=== PATIENT | female | born 1950 | race Asian ===

== ENCOUNTER → 2016-04-03 | Outpatient (CLI) | payer OTHER, MEDICARE ==
[2016-04-03 15:02] VITALS: BP 156/76; PULSE 47; RESP 16; TEMP 98.2; BMI 20.9
[2016-04-03 16:45] LABS: CH 31.8; CHCM 35.2; HCT 40.7 % (34.0-46.0); HDW 2.93; HGB 14.1 gm/dL (11.4-16.0); MCH 31.6 pg (25.0-35.0); MCHC 34.8 g/dL (31.0-37.0); Mean Platelet Volume 7.3; RBC 4.47 m/uL (3.80-5.40); RDW 13.2 % (11.5-15.5); WBC 3.7 k/uL (3.8-10.6)
[2016-04-03 16:55] LABS: Partial Thromboplastin Time 24.5 sec (22.0-30.0); Prothrombin Time 10.2 sec (9.0-12.0)
[2016-04-03 17:10] LABS: ALT 46 U/L (9-52); AST 32 U/L (14-36); Alkaline Phosphatase 57 U/L (38-126); Anion Gap 9 mmol/L; Blood Urea Nitrogen 16 mg/dL (7-17); Calcium 9.5 mg/dL (8.4-10.2); Carbon Dioxide 30 mmol/L (22-30); Chloride 104 mmol/L (98-107); Cholesterol 201 mg/dL (<200); Glucose 89 mg/dL (74-99); HDL Cholesterol 100 mg/dL (40-60); Iron 105 ug/dL (37-170); Magnesium 2.1 mg/dL (1.6-2.3); Non-African American GFR(MDRD) >60 (>60 ml/min/1.73 sqM); Potassium 4.2 mmol/L (3.5-5.1); Sodium 143 mmol/L (137-145); Total Protein 7.7 g/dL (6.3-8.2); Triglycerides 59 mg/dL (<150)
[2016-04-03 17:21] LABS: % Iron Saturation 31.1 % (20-50); Prealbumin 28 mg/dL (18-36); Total Iron Binding Capacity 338 ug/dL (265-497)
[2016-04-03 18:09] LABS: Hemoglobin A1C 4.5 % (4.2-6.1)
[2016-04-03 18:16] LABS: Vitamin B12 810 pg/mL (239-931)
[2016-04-05 18:53] LABS: Selenium 180 mcg/L (63-160)
--- NOTE | 2016-04-05 21:41 | CONS ---
DATE OF CONSULTATION: 04/03/2016 CHIEF COMPLAINT: Followup sleeve gastrectomy. HISTORY OF PRESENT ILLNESS: Elaine Mukherjee is a 65-year-old female who is actually status post sleeve gastrectomy in May 2012. She is almost 4 years out. Her highest weight was 187.2 pounds. At her height of 5 feet, her ideal body weight is 127 pounds. Her body mass index was 36.6. Today she comes in weighing 107 pounds. She has lost 80 pounds. Percent excess weight loss is 134%. Body mass index has been reduced to 20.9. Total BMI point reduction is 15.7. Separately she reports having cancer of the right breast. She had chemoradiation which resulted in decreased size and asymmetry of her breasts. She is also looking for breast reconstruction. Now she presents for further evaluation and management. She denies any gastroesophageal reflux disease or epigastric abdominal pain. PAST MEDICAL HISTORY: 1. Gastroesophageal reflux disease. 2. Asthma. 3. Hypertension. 4. Carpal tunnel syndrome. 5. Dyslipidemia now resolved. 6. Osteopenia. 7. Restless leg syndrome. 8. Obstructive sleep apnea, now resolved. 9. History of head injury. 10. Obesity, now resolved. 11. Depression. 12. Cardiomyopathy, now resolved. 13. Anxiety. 14. Breast cancer. PAST SURGICAL HISTORY: 1. Bilateral carpal tunnel release. 2. Tonsillectomy. 3. Flexor tendon repair. 4. Sleep apnea. 5. Bilateral cataract extraction. 6. Upper endoscopy. 7. Laparoscopic sleeve gastrectomy. 8. Right breast partial mastectomy. 9. Chemoradiation for right breast. MEDICATIONS: 1. Klonopin. 2. Os-Abdirashid. 3. Anastrozole. 4. Albuterol. 5. Aricept. 6. Symbicort. 7. Multivitamin. 8. Singulair. 9. Cozaar. 10. Norvasc. REVIEW OF SYSTEMS: CONSTITUTIONAL: Percent excess weight loss of 134%. [place] body weight is 127 pounds. Highest weight of 187 pounds. Total weight loss of 80.4 pounds. Body mass index reduced from 36.6 to 20.9. Additional weight loss of 7 pounds in 2 years. BREASTS: History of breast cancer, status post chemoradiation, right breast. GASTROINTESTINAL: No reports of nausea or vomiting or gastroesophageal reflux disease. HEENT: Denies any dysphagia or troubles with hearing or vision. ENDOCRINE: Denies any thyroid disorders or diabetes. CARDIOVASCULAR: History of cardiomyopathy including decreased any use of her antihypertensive medications. RESPIRATORY: History of obstructive sleep apnea, now completely resolved. Has asthma. SKIN: Resolution of panniculitis since her weight loss. MUSCULOSKELETAL: Lower back pain including osteoarthritis, moderately improved since her weight loss. NEUROLOGIC: Denies any strokes or seizure disorders. History of head injury in the past. PSYCH: Pertinent for anxiety and depression. HEMATOLOGIC: No reports of DVTs or pulmonary embolisms. PHYSICAL EXAM: VITAL SIGNS: 98.2, 47, 16, 156/76, 5 feet, 107 pounds. Body mass index 20.9. ABDOMEN: Soft, nontender. No palpable incisional hernias. Excess redundant skin over pubis by 4 cm. Breast asymmetry noted with smaller right breast than the left breast. GENERAL: Well-developed pleasant female in no acute distress. HEENT: No scleral icterus. Extraocular movements grossly intact. Moist buccal mucosa. NECK: Supple without lymphadenopathy. CHEST: Unlabored respirations. Equal bilateral excursions. CARDIOVASCULAR: Regular rate and rhythm. NEURO: No focal or lateralizing signs. PSYCH: Appropriate affect. Alert and oriented to person, place and time. ASSESSMENT: 1. Status post sleeve gastrectomy. 2. Morbid obesity due to excess calories, now resolved. 3. Body mass index reduced from 36.6 to 20.9. 4. History of right breast cancer with undetermined stage. 5. Excess abdominal skin. 6. Obstructive sleep apnea, resolved. 7. Hypertension, resolved. 8. Dyslipidemia, resolved. 9. Osteoarthritis, resolved. PLAN: 1. Recommend bariatric metabolic panel, as she is a long-standing sleeve gastrectomy patient. 2. As she is looking into breast reconstruction and has moderate excess skin along the abdomen, she may be a candidate for soft tissue transfer for breast reconstruction. A referral to Dr. Esparza at [place] was recommended. 3. She will need optimal nutrition, especially prior to fairly extensive surgery. 4. Recommend followup in [place] in approximately 3 weeks. ADDENDUM: LABS: White count was low at 3.7. Platelets were low 149. INR is normal at 1.0. Iron was normal at 105. Cholesterol slightly elevated at 201. HDL was elevated at 100. Vitamin D was normal, including parathyroid hormone. Trace elements are still pending regarding copper and selenium. Overall nutrition is exceptional. From a bariatric standpoint, she may be cleared to pursue surgical intervention for breast reconstruction. However, she is at increased risk for bleeding, given her thrombocytopenia as well as leukopenia. [facility]
== END | disposition home or self-care (01) ==
LOC: BARWHC3 13:45
PROVIDERS: ATTEND Surgery Plastic and Reconstructive Surgery
DX: Z48.815 Encounter for surgical aftercare following surgery on the digestive system (principal); Z71.3 Dietary counseling and surveillance; E21.1 Secondary hyperparathyroidism, not elsewhere classified; E89.1 Postprocedural hypoinsulinemia; D50.8 Other iron deficiency anemias; E44.0 Moderate protein-calorie malnutrition; E55.9 Vitamin D deficiency, unspecified; K74.1 Hepatic sclerosis; N19 Unspecified kidney failure; K50.90 Crohn's disease, unspecified, without complications; Z98.84 Bariatric surgery status; Z79.899 Other long term (current) drug therapy; Z68.20 Body mass index [BMI] 20.0-20.9, adult; Z85.3 Personal history of malignant neoplasm of breast; L98.7 Excessive and redundant skin and subcutaneous tissue
CPT/HCPCS: 80053; 80061; 82306; 82525; 82607; 82728; 82746; 83036; 83540; 83550; 83735; 83970; 84100; 84134; 84255; 84425; 84443; 84590; 84630; 85027; 85610; 85730; 99211